=== PATIENT | male | born 1940 | race Caucasian/White ===

== ENCOUNTER → 2017-02-17 | Outpatient (CLI) | payer OTHER ==
[~2017-02-17] MED LIST: ALEVE PO; ALPHAGAN P10 ML OP; ASPIRIN PO; ASPIRIN81 MG PO; BYSTOLIC PO; CALTRATE 600+D PO; CLONIDINE PO; FOLIC ACID PO; HYDROCHLOROTHIA25 MG PO; K-DUR20 ME1 PO; LIBRIUM PO; LISINOPRIL PO; LOTENSIN20 MG PO; METOPROLOL TART25 MG PO; NEXIUM PO; NORVASC PO; PLAVIX PO; PRED FORTE OD; PROAIR HFA8.5 GM IH; SLOW-MAG64 MG PO; SYMBICORT INH; ZESTORETIC 10/11 TAB PO; [UNRECOGNIZED DRUG - OTHER] OD
--- NOTE | ~2017-02-17 | US10 ---
[id number] [facility] [address] [place], [place] [address] [id number] O MR#: [id number] Acc #: [id number] NAME: LILIAN ETIENNE : 1940 SEX: M STUDY DATE/TIME: 02/17/2017 12:16 UNIT: CNIV ROOM: STUDY DESCRIPTION: US Aorta Complete Attending Physician: July Florence M.D. Referring Physician: July Florence M.D. Ordering Physician: July Florence M.D. Primary Care Physician: Diamond Ayala A.P.R.N. MEDICAL IMAGING REPORT This report is preliminary unless electronic signature is present EXAM Ultrasound of the aorta, 02/17/2017 HISTORY Abdominal aortic aneurysm. FINDINGS High-resolution B-mode imaging and color flow Doppler analysis was performed of the abdominal aorta and iliac arteries in longitudinal and transverse views. The abdominal aorta could not be well evaluated in the most proximal portion of the abdomen due to overlying shadows. The abdominal aorta measures 3.79 x 3.65 cm in transverse diameter in the proximal segment, 4.68 x 4.78 cm in transverse diameter in the mid segment, and 2.84 x 2.28 cm in greatest diameter in the distal segment. The right common iliac artery measures about 9 mm in diameter. The left common iliac artery measures about 10 mm in diameter. IMPRESSION 4.8 cm abdominal aortic aneurysm. The proximal extent of the aneurysm is not demonstrated. No significant aneurysmal involvement of the iliac arteries on either side. Dictated by... Talib Felipe M.D. THIS IS AN ELECTRONICALLY VERIFIED REPORT Talib Felipe M.D. at 02/19/2017 5:21 PM LIZZY/tomas TD: 02/17/2017 20:31 JOB #: [id number] MEDICAL IMAGING REPORT Page 1 of 1 COPY
--- NOTE | ~2017-02-17 | US135 ---
[facility] A Service of [facility] RADIOLOGY TEXT RESULTS PATIENT: LILIAN ETIENNE LOCATION: CNIV : 42 UNIT #: [id number] AGE: [address]: July Florence MD SEX: M ORDER DR: [id number] [facility] [address] [place], [place] [address] [id number] O MR#: [id number] Acc #: [id number] NAME: LILIAN ETIENNE : 1940 SEX: M STUDY DATE/TIME: 02/17/2017 11:13 UNIT: CNIV ROOM: STUDY DESCRIPTION: US U/L Ext Art Study Comp Bartolome Attending Physician: July Florence M.D. Referring Physician: July Florence M.D. Ordering Physician: July Florenec M.D. Primary Care Physician: Diamond Ayala A.P.R.N. MEDICAL IMAGING REPORT This report is preliminary unless electronic signature is present EXAM Lower extremity arterial segmental pressures date of examination 02/17/2017 HISTORY Peripheral artery disease. Claudication. FINDINGS The right brachial pressure is 197 and the left brachial pressure is 206. The right upper thigh pressure is 174, lower thigh 151, calf 130, dorsalis pedis 130, posterior tibial 124, and toe 89 for an ankle to brachial index of 0.63. The left upper thigh pressure is 169, lower thigh 146, calf 90, dorsalis pedis 106, posterior tibial 105, and toe 90 for an ankle to brachial index of 0.51. Pulse volume recording tracings demonstrate damping of the signal at all levels in both legs. The ankle signal is diminished on the left side compared to the right. IMPRESSION Moderate ischemia of both legs with an ankle to brachial index of 0.63 on the right and 0.51 on the left. 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 Dictated by... Talib Felipe M.D. [facility] A Service [facility] RADIOLOGY TEXT RESULTS PATIENT: LILIAN ETIENNE LOCATION: [facility] : 41 UNIT #: [id number] AGE: [address]: uJly Florence MD SEX: M ORDER DR: THIS IS AN ELECTRONICALLY VERIFIED REPORT Talib Feliep M.D. at 02/19/2017 5:20 PM LIZZY/gabriela TD: 02/17/2017 20:10 JOB #: [id number] MEDICAL IMAGING REPORT Page 1 of 1 COPY
== END | disposition home or self-care (01) ==
LOC: CNIV 11:00
DX: I71.4 Abdominal aortic aneurysm, without rupture (principal); I73.9 Peripheral vascular disease, unspecified; I77.89 Other specified disorders of arteries and arterioles
CPT/HCPCS: 76770; 93923